=== PATIENT | female | born 1930 | race Caucasian/White ===

== ENCOUNTER 2016-11-10 11:24 | Day surgery (SDC) | payer MEDICARE, OTHER ==
[~2016-11-10] VITALS: Ht 139.7 cm; Wt 46.6 kg
[~2016-11-10 11:24] MED LIST: AMLOPIDINE PO; ASPIRIN 32325 MG/TAB PO; ASPIRIN 81M81 MG/TA2 PO; ASPIRIN E.C. 8181 MG PO; CALCARB 600 W/V1 TA1 PO; CALCIUM + D 5001 TAB PO; CALCIUM 500 W/V1 TAB PO; CALTRATE-600 W600 MG PO; CENTRUM SILVER1 TA1 PO; Chondroitin; ECOTRIN325 MG PO; EVISTA; EVISTA 60MG60 MG/TAB PO; EVISTA60 MG PO; FISH OIL1000 MG PO; GLUCOSAMINE & C1 CA1 PO; GLUCOSAMINE HC500 MG; GLUCOSAMINE PO; Glucosamine; HAIR SKIN NAILS PO; HAIRSKINNAILS PO; IMDUR 30MG30 MG/TAB PO; IMDUR30 MG PO; INFANTS AQU400 IU/ML PO; ISORDIL TITRADO30 MG PO; LEVAQUIN; LIPITOR 40MG TA40 MG PO; LIPITOR40 MG PO; LOPRESSOR 225 MG/TAB PO; MUCINEX 60600 MG/TA1 PO; MULTIPLE VITAMI1 CAP PO; NEURONTIN100 MG PO; NEXIUM 40MG40 MG PO; NITROQUICK0.4 MG SL; NITROSTAT0.4 MG SL; NITROSTAT0.4 MG/TAB SL; NORVASC 5MG5 MG/TAB PO; NORVASC2.5 MG PO; NORVASC5 MG PO; OMNARIS50 MCG/Act NS; OMNICEF 300MG300 MG PO; OS-CAL 500 + D1 TAB PO; PERCOCET 325 MG1 TA2 PO; PLAVIX 75MG TAB75 MG PO; POTASSIUM99 MG PO; RANEXA 500MG T500 MG PO; RITE AID BIO2500 MCG; SINGULAIR 110 MG/TAB PO; THERAGRAN1 TA1 PO; TOPROL XL 25MG25 MG PO; TOPROL XL25 MG PO; TUSS PO; VENTOLIN0.09 MG IH; VITAMIN D31000 IU PO; VITAMIN E-400200 IU PO; ZANTAC 150150 MG PO; ZANTAC 150MG T150 MG PO; ZITHROMAX 250M250 MG PO; ZYRTEC 10MG10 MG PO
[2016-11-10] MEDS ORDERED: ONE DAILY1 TA1 PO (12:26)
[2016-11-10 12:27] VITALS: BP 144/81; PULSE 83; TEMP 97.2
[2016-11-10 13:36] VITALS: BP 127/78; PULSE 72; TEMP 98.3
[2016-11-10 13:45] VITALS: BP 143/72; PULSE 77
[2016-11-10 14:00] VITALS: BP 115/66; PULSE 76
[2016-11-10 14:15] VITALS: BP 129/67; PULSE 72
[2016-11-10 16:28] VITALS: BP 120/75; PULSE 67
[2016-11-10] MEDS ORDERED: ZITHROMAX 250M250 MG PO ×2 (18:48→18:49)
== END 2016-11-10 14:25 | disposition home or self-care (01) ==
LOC: SDCO 11:24
DX: J18.9 Pneumonia, unspecified organism (principal); R05 Cough
CPT/HCPCS: J2704; J2920; J7030

== ENCOUNTER → 2017-09-10 | Outpatient (CLI) | payer MEDICARE, OTHER ==
[~2017-09-10] MED LIST changes: +ONE DAILY1 TA1 PO
== END ==
LOC: MC.RAD 10:59
DX: Z12.31 Encounter for screening mammogram for malignant neoplasm of breast (principal)

== ENCOUNTER 2017-12-07 07:00 | Emergency (ER) | payer MEDICARE, OTHER ==
[~2017-12-07] VITALS: Ht 144.8 cm; Wt 43.2 kg
[2017-12-07 07:06] VITALS: TEMP 97.8
[2017-12-07 08:01] LABS: BASO % 0.6 % (0.0-2.0); EOS # 0.1 (0.0-0.7); EOS % 1.7 % (0-4.0); GRAN # 2.9 (1.4-6.5); GRAN % 59.8 % (42.2-75.2); HEMOGLOBIN 13.2 g/dl (12.5-16.0); LYMPH # 1.3 (1.2-3.4); LYMPH % 26.6 % (20.0-51.0); MEAN CELL VOLUME 92 fl (80.0-100.0); MEAN CORPUSCULAR HEMOGLOBIN 31 pg (27.0-31.0); MEAN CORPUSCULAR HGB CONC 33 g/dl (33.0-37.0); MEAN PLATELET VOLUME 9.2 fl (7.4-10.4); MONO # 0.5 (0.1-0.6); MONO % 10.9 % (1.7-9.3); PLATELET COUNT 159 K/mm3 (130-400); RED BLOOD COUNT 4.33 M/mm3 (4.10-5.30); REDCELL DISTRIBUTION WIDTH-CV 13.7 % (11.5-14.5)
[2017-12-07 08:17] LABS: ALANINE AMINOTRANSFERASE 32 U/L (9-52); ALBUMIN 4.3 gm/dL (3.5-5.0); ALKALINE PHOSPHATASE 82 U/L (50-136); ANION GAP 10 mmol/L (7-16); AST,SGOT 46 U/L (15-37); BILIRUBIN,TOTAL 0.9 mg/dL (0.0-1.0); BLOOD UREA NITROGEN 15 mg/dL (7-17); CALCIUM 9.9 mg/dL (8.4-10.2); CARBON DIOXIDE 26 mmol/L (22-30); CHLORIDE 105 mmol/L (98-107); GLUCOSE 101 mg/dL (74-106); SODIUM 141 mmol/L (137-145); TOTAL PROTEIN 7.4 gm/dL (6.4-8.2)
[2017-12-07 08:31] LABS: C-REACTIVE PROTEIN < 0.5 mg/dL (0.0-0.9); TROPONIN-I < 0.012 ng/mL (0.000-0.034)
[2017-12-07 09:47] LABS: COLLECTION METHOD CLEAN CATCH
[2017-12-07 09:55] LABS: MUCOUS Present /lpf; PH 7 (5-8); SQUAMOUS EPITHELIAL 0-2 /hpf; URINE APPEARANCE Clear; URINE BACTERIA None Seen /hpf; URINE BILIRUBIN Negative (NEGATIVE); URINE BLOOD Negative (NEGATIVE); URINE COLOR Yellow; URINE GLUCOSE Negative (NEGATIVE); URINE KETONE Negative (NEGATIVE); URINE LEUKOCYTE ESTERASE Negative (NEGATIVE); URINE NITRATE Negative (NEGATIVE); URINE PROTEIN(semi-quant) Negative (NEGATIVE); URINE RBC 0-2 /hpf; URINE UROBILINOGEN Negative (NEGATIVE)
[2017-12-07] MEDS ORDERED: ANTIVERT 25MG25 MG PO (10:31)
[2017-12-07 10:49] VITALS: BP 121/74; PULSE 81
[2017-12-07] MEDS ORDERED: ACIPHEX20 MG PO (20:30)
[2017-12-08] MEDS ORDERED: VALIUM 5MG T5 MG/TAB PO (11:35)
== END 2017-12-07 10:53 | disposition home or self-care (01) ==
LOC: COL.ER 07:00
PROVIDERS: Emergency Medicine
DX: R42 Dizziness and giddiness (principal); I25.10 Atherosclerotic heart disease of native coronary artery without angina pectoris; Z95.5 Presence of coronary angioplasty implant and graft
CPT/HCPCS: J2060; J2405; J7030

== ENCOUNTER → 2018-12-22 | Outpatient (CLI) | payer MEDICARE, OTHER ==
[~2018-12-22] MED LIST changes: +ACIPHEX20 MG PO; +ANTIVERT 25MG25 MG PO; +MAG-OX 400400 MG/TAB PO; +PROTONIX 40MG T40 MG PO; +TUMS500 MG PO; +VALIUM 5MG T5 MG/TAB PO
== END ==
LOC: COL.RAD 09:48
DX: Z95.0 Presence of cardiac pacemaker (principal)

== ENCOUNTER → 2019-04-26 | Outpatient (CLI) | payer MEDICARE, OTHER | LOC: COL.RAD 12:52 | DX: M16.12 Unilateral primary osteoarthritis, left hip (principal) | CPT/HCPCS: J3301; Q9967 ==

== ENCOUNTER 2019-05-03 17:23 | Emergency (ER) | payer MEDICARE, OTHER ==
[~2019-05-03] VITALS: Ht 144.8 cm; Wt 45.0 kg
[2019-05-03 17:49] VITALS: BP 158/70; TEMP 97.4
[2019-05-03 18:56] LABS: BASO % 0.3 % (0.0-2.0); EOS # 0.1 (0.0-0.7); EOS % 0.5 % (0-4.0); GRAN # 6.4 (1.4-6.5); GRAN % 69.7 % (42.2-75.2); HEMATOCRIT 37.3 % (37.0-47.0); HEMOGLOBIN 12.5 g/dl (12.5-16.0); LYMPH # 1.7 (1.2-3.4); LYMPH % 18.7 % (20.0-51.0); MEAN CELL VOLUME 88 fl (80.0-100.0); MEAN CORPUSCULAR HEMOGLOBIN 30 pg (27.0-31.0); MEAN CORPUSCULAR HGB CONC 34 g/dl (33.0-37.0); MONO # 0.9 (0.1-0.6); PLATELET COUNT 170 K/mm3 (130-400); RED BLOOD COUNT 4.24 M/mm3 (4.10-5.30); REDCELL DISTRIBUTION WIDTH-CV 13.8 % (11.5-14.5)
[2019-05-03 19:17] LABS: CALCIUM 9.9 mg/dL (8.4-10.2); CREATININE, serum 0.59 (0.52-1.25); POTASSIUM 3.8 mmol/L (3.4-5.0)
[2019-05-03 19:47] LABS: COLLECTION METHOD CLEAN CATCH
[2019-05-03 19:53] LABS: PH 6 (5-8); SQUAMOUS EPITHELIAL 0-2 /hpf; URINE APPEARANCE Clear; URINE BACTERIA Rare /hpf; URINE BILIRUBIN Negative (NEGATIVE); URINE BLOOD Negative (NEGATIVE); URINE COLOR Yellow; URINE GLUCOSE Negative (NEGATIVE); URINE KETONE Negative (NEGATIVE); URINE LEUKOCYTE ESTERASE Negative (NEGATIVE); URINE NITRATE Negative (NEGATIVE); URINE PROTEIN(semi-quant) Negative (NEGATIVE); URINE RBC 0-2 /hpf; URINE UROBILINOGEN >=4.0 mg/dL (NEGATIVE)
[2019-05-03] MEDS ORDERED: NORCO 325 MG-51 TAB PO (21:07)
[2019-05-03 21:30] VITALS: PULSE 76
== END 2019-05-03 21:53 | disposition home or self-care (01) ==
LOC: COL.ER 17:23
PROVIDERS: Physician Assistant
DX: M25.552 Pain in left hip (principal); M25.562 Pain in left knee; Z79.02 Long term (current) use of antithrombotics/antiplatelets; Z90.710 Acquired absence of both cervix and uterus; Z96.653 Presence of artificial knee joint, bilateral; W19.XXXA Unspecified fall, initial encounter

== ENCOUNTER → 2019-08-15 | Outpatient (CLI) | payer MEDICARE, OTHER ==
[~2019-08-15] MED LIST changes: +NORCO 325 MG-51 TAB PO
== END ==
LOC: MC.RAD 12:55
DX: Z12.31 Encounter for screening mammogram for malignant neoplasm of breast (principal)